=== PATIENT | female | born 1960 | race Hispanic/Latino ===

== ENCOUNTER 2021-06-02 12:58 | Inpatient (IN) | payer MEDICARE ==
[2021-06-03 05:37] LABS: Basophils # (Auto) 0.1 K/mm3 (0.0-0.1); Basophils % (Auto) 1.1 % (0.0-1.8); Eosinophils # (Auto) 0.1 K/mm3 (0.0-0.4); Eosinophils % (Auto) 0.9 % (0.0-4.3); Hematocrit 38.3 % (30.3-42.9); Hemoglobin 12.7 gm/dl (10.1-14.3); Lymphocytes # (Auto) 1.8 K/mm3 (1.2-5.4); Lymphocytes % (Auto) 23.7 % (13.4-35.0); Mean Corpuscular HGB Conc 33 % (30-34); Mean Corpuscular Volume 87 fl (79-97); Monocytes # (Auto) 0.7 K/mm3 (0.0-0.8); Monocytes % (Auto) 9.4 % (0.0-7.3); Platelet Count 331 K/mm3 (140-440); Red Cell Distribution Width 15.3 % (13.2-15.2)
[2021-06-03 06:04] LABS: Alanine Aminotransferase 12 units/L (7-56); Albumin 3.2 g/dL (3.9-5); BUN/Creatinine Ratio 14; Blood Urea Nitrogen 13 mg/dL (7-17); Calcium 9.5 mg/dL (8.4-10.2); Chol/HDL Ratio 4.19 %; HDL Cholesterol 42 mg/dL (40-59); Hemolysis Index 17; LDL Cholesterol,Direct 105 mg/dL (50-130)
[2021-06-03 06:48] LABS: Hepatitis C Virus Antibody Non-Reactive (NonReactive)
[2021-06-03 06:59] LABS: Hepatitis B Surface Antigen Nonreactive (Negative)
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
[2021-06-03] MEDS ORDERED: NON-FORMULARY EACH (Aspirin [Vazalore] 81 MG Capsule) PO SCH (10:00)
[2021-06-03] MEDS ORDERED: ALPRAZolam 0.5 MG TAB PO PRN (10:00)
[2021-06-03] MEDS: PANTOPRAZOLE 20 MG TAB PO SCH (11:06)
[2021-06-03] MEDS: buPROPion SR 150 MG TAB PO SCH (11:06)
[2021-06-03] MEDS: FLUoxetine 10 MG TAB PO SCH (11:06)
[2021-06-03] MEDS: METOPROLOL TARTRATE 25 MG TAB PO SCH ×2 (11:07→21:13)
[2021-06-03] MEDS: ASPIRIN 81 MG TAB CHEW PO SCH (11:42)
[2021-06-03] MEDS ORDERED: ONDANSETRON 4 MG ODT TAB PO PRN (17:00)
--- NOTE | 2021-06-03 17:01 | Consultation ---
History of Present Illness - Reason for Consult Consult date: 06/03/21 Medical management - History of Present Illness The patient is 61-year-old female with past medical history of depression, anxiety, PTSD, stroke, prior GI bleed, pancreatitis, ASD and breast cancer (diagnosed 1995; status post transflap reconstruction and chemoradiation) who presents with suicidal ideation (more specifically overdosing on Seroquel). The patient describes having increased social stressors "piling on top of each other" causing her to "snap". The patient currently endorses feeling fine and being ready for discharge. She describes her episode as "an impulse". The patient describes being compliant with her medications and having no issues with said medications. The consult was placed for medical management of nonpsychiatric diagnoses. Past History Past Medical History: atrial fib, cancer (Breast cancer diagnosed in 1995), stroke, other (GI bleed, pancreatitis, ASD) Past Surgical History: total knee replacement (Left knee), Other (Transflap reconstruction of breast) Family history: cancer (Breast cancer in mother. Surgical hypothyroidism in mother.) Medications and Allergies Allergies Allergy/AdvReac Type Severity Reaction Status Date / Time No Known Allergies Allergy Unverified 06/02/21 14:42 Home Medications Medication Instructions Recorded Confirmed Last Taken Type ALPRAZolam [Xanax TAB] 0.5 mg PO BID PRN 06/03/21 06/03/21 Unknown History Aspirin [Vazalore] 81 mg PO DAILY 06/03/21 06/03/21 Unknown History Enoxaparin Sodium [Lovenox] 40 mg SQ DAILY 06/03/21 06/03/21 Unknown History FLUoxetine [PROzac] 10 mg PO DAILY 06/03/21 06/03/21 Unknown History Metoprolol [Lopressor TAB] 25 mg PO BID 06/03/21 06/03/21 Unknown History Pantoprazole [Protonix TAB] 40 mg PO QDAY 06/03/21 06/03/21 Unknown History QUEtiapine [SEROquel] 25 mg PO HS 06/03/21 06/03/21 Unknown History Zolpidem Tartrate [Zolpidem 6.25 mg PO HS 06/03/21 06/03/21 Unknown History Tartrate ER] buPROPion SR [Wellbutrin Sr] 150 mg PO QAM 06/03/21 06/03/21 Unknown History Active Meds: Active Medications Alprazolam (Alprazolam 0.5 Mg Tab) 0.5 mg PO BID PRN PRN Reason: Anxiety Aspirin (Aspirin 81 Mg Tab Chew) 81 mg PO QDAY [facility] Last Admin: 06/03/21 11:42 Dose: 81 mg Documented by: Bupropion HCl (Bupropion Sr 150 Mg Tab) 150 mg PO QAM [facility] Last Admin: 06/03/21 11:06 Dose: 150 mg Documented by: Fluoxetine HCl (Fluoxetine 10 Mg Tab) 10 mg PO DAILY [facility] Last Admin: 06/03/21 11:06 Dose: 10 mg Documented by: Metoprolol Tartrate (Metoprolol Tartrate 25 Mg Tab) 25 mg PO BID [facility] Last Admin: 06/03/21 11:07 Dose: 25 mg Documented by: Ondansetron HCl (Ondansetron 4 Mg Odt Tab) 4 mg PO Q8H PRN PRN Reason: Nausea And Vomiting Pantoprazole Sodium (Pantoprazole 20 Mg Tab) 40 mg PO 0730 [facility] Last Admin: 06/03/21 11:06 Dose: 40 mg Documented by: Zolpidem Tartrate (Zolpidem 5 Mg Tab) 5 mg PO QHS [facility] Review of Systems All systems: negative Exam - Constitutional Vitals: Temp Pulse Resp BP Pulse Ox 98.8 F 85 18 106/73 97 06/03/21 09:37 06/03/21 11:07 06/03/21 09:37 06/03/21 11:07 06/03/21 09:37 General appearance: Present: no acute distress - EENT Eyes: Present: PERRL, EOM intact ENT: hearing intact, clear oral mucosa, dentition normal - Neck Neck: Present: supple, normal ROM - Respiratory Respiratory effort: normal - Cardiovascular Rhythm: irregularly irregular Heart Sounds: Present: S1 & S2 - Extremities Extremities: no ischemia, pulses intact, pulses symmetrical, No edema, normal temperature, normal color Peripheral Pulses: within normal limits - Abdominal General gastrointestinal: Present: soft, non-tender, non-distended, normal bowel sounds Female genitourinary: Present: deferred - Rectal Rectal Exam: deferred - Integumentary Integumentary: Present: clear, warm, dry - Musculoskeletal Musculoskeletal: strength equal bilaterally - Psychiatric Psychiatric: appropriate mood/affect, intact judgment & insight, memory intact, cooperative - Neurologic Neurologic: CNII-XII intact, moves all extremities - Allied Health Allied health notes reviewed: nursing Results - Labs CBC & Chem 7: 06/03/21 05:16 06/03/21 05:16 Labs: Abnormal lab results 06/03/21 06/03/21 06/03/21 Range/Units 05:16 05:16 05:16 RDW 15.3 H (13.2-15.2) % [place] % (Auto) 9.4 H (0.0-7.3) % Albumin 3.2 L (3.9-5) g/dL TSH 4.260 H (0.270-4.200) mlU/mL Assessment and Plan #Suicidal ideation #Depression #Anxiety #PTSD -Management per primary #Atrial fibrillation -Currently rate controlled with metoprolol tartrate 25 mg twice daily -Continue home medication #Elevated TSH -TSH 4.260 -Patient denies any symptoms associated with hypothyroidism -Ordering free T4 in a.m. #GERD -Continue home p.o. pantoprazole 40 mg daily #History of stroke -No residual defects notable on physical exam -Continue daily ASA 81 mg Thank you for this interesting consult. We will continue to follow.
[2021-06-03] MEDS: ZOLPIDEM 5 MG TAB PO SCH (21:14)
[2021-06-03] MEDS ORDERED: ZOLPIDEM TARTRATE 6.25 MG PO SCH (22:00)
--- NOTE | 2021-06-04 09:19 | Progress Note ---
Subjective Date of service: 06/04/21 Subjective Comment: 06/04/2021: The patient reports doing well. She states depression is improving. She reports sleep and appetite as good. She denies any current suicidal ideation and denies hallucinations. REVIEW OF SYSTEMS Constitutional: Negative for weight loss ENT: Negative for stridor Respiratory: Negative for cough or hemoptysis All other systems reviewed and are negative MENTAL STATUS EXAMINATION General Appearance and Behavior: Age appropriate, good hygiene, wearing appropriate clothes, fair eye contact Cooperation: Participating/engaged, but Guarded Psychomotor Behavior: Psychomotor normal Mood: "good" Affect and affective range: Congruent to stated mood Thought Process: Goal directed Thought Content: Not suicidal Speech: normal tone and pace Suicidal Ideation:Denies Homicidal Ideation: Denies Hallucinations: Denies Impulse Control: Questionable Insight and Judgment: Limited insight and fair judgment Memory: Normal Attention: Normal Orientation: Alert and oriented Assessment and Plan (1) Major depressive disorder, recurrent, severe-F33.2 Current Visit: Yes Status: Acute Treatment Plan Patient admitted for inpatient psychiatric evaluation, medication adjustment and close monitoring The patient's behavior, mood, sleep and appetite will be closely monitored. Patient enrolled in individual and group therapeutic sessions and encouraged to attend. Patient provided with a safe and structured environment. Patient's physical health needs will be addressed by the Hospitalist. Hospitalist Consulted Labs including CBC, CMP, Lipid profile and Hemoglobin A1C levels ordered for baseline reference Social Assessment will be completed and the Assistant Branch Manager will work with patient and family to ensure a suitable and safe disposition Medication adjustment will be made as clinically indicated Continued Home medications No changes made today Usual Wellness Pentecostal/Preservation: - Start Trazodone 50 mg po QHS & 50 mg po QHS PRN between 10 PM & 2 AM for insomnia - Start Melatonin 5 mg po QHS to promote circadian rhythm The patient agreed on the treatment plan, understood the risk, benefit, alternative treatment, potential consequence of no treatment, and gave informed consent. Estimated days: 6 Post hospital care: primary care provider, psychiatric provider Case staffed with Dr. Whaley Reaction to Hospitalization: Accepting Medications and Allergies Medications and Allergies Allergies Allergy/AdvReac Type Severity Reaction Status Date / Time No Known Allergies Allergy Unverified 06/02/21 14:42 Home Medications Medication Instructions Recorded Confirmed Last Taken Type ALPRAZolam [Xanax TAB] 0.5 mg PO BID PRN 06/03/21 06/03/21 Unknown History Aspirin [Vazalore] 81 mg PO DAILY 06/03/21 06/03/21 Unknown History Enoxaparin Sodium [Lovenox] 40 mg SQ DAILY 06/03/21 06/03/21 Unknown History FLUoxetine [PROzac] 10 mg PO DAILY 06/03/21 06/03/21 Unknown History Metoprolol [Lopressor TAB] 25 mg PO BID 06/03/21 06/03/21 Unknown History Pantoprazole [Protonix TAB] 40 mg PO QDAY 06/03/21 06/03/21 Unknown History QUEtiapine [SEROquel] 25 mg PO HS 06/03/21 06/03/21 Unknown History Zolpidem Tartrate [Zolpidem 6.25 mg PO HS 06/03/21 06/03/21 Unknown History Tartrate ER] buPROPion SR [Wellbutrin Sr] 150 mg PO QAM 06/03/21 06/03/21 Unknown History Active Meds: Active Medications Alprazolam (Alprazolam 0.5 Mg Tab) 0.5 mg PO BID PRN PRN Reason: Anxiety Aspirin (Aspirin 81 Mg Tab Chew) 81 mg PO QDAY [facility] Last Admin: 06/03/21 11:42 Dose: 81 mg Documented by: Bupropion HCl (Bupropion Sr 150 Mg Tab) 150 mg PO QAM [facility] Last Admin: 06/03/21 11:06 Dose: 150 mg Documented by: Fluoxetine HCl (Fluoxetine 10 Mg Tab) 10 mg PO DAILY [facility] Last Admin: 06/03/21 11:06 Dose: 10 mg Documented by: Metoprolol Tartrate (Metoprolol Tartrate 25 Mg Tab) 25 mg PO BID [facility] Last Admin: 06/03/21 21:13 Dose: 25 mg Documented by: Ondansetron HCl (Ondansetron 4 Mg Odt Tab) 4 mg PO Q8H PRN PRN Reason: Nausea And Vomiting Last Admin: 06/03/21 17:41 Dose: 4 mg Documented by: Pantoprazole Sodium (Pantoprazole 20 Mg Tab) 40 mg PO 0730 [facility] Last Admin: 06/03/21 11:06 Dose: 40 mg Documented by: Zolpidem Tartrate (Zolpidem 5 Mg Tab) 5 mg PO QHS [facility] Last Admin: 06/03/21 21:14 Dose: 5 mg Documented by: Results - Results Labs/Vitals: Laboratory Last Values WBC 7.6 K/mm3 (4.5-11.0) 06/03/21 05:16 RBC 4.40 M/mm3 (3.65-5.03) 06/03/21 05:16 Hgb 12.7 gm/dl (10.1-14.3) 06/03/21 05:16 Hct 38.3 % (30.3-42.9) 06/03/21 05:16 MCV 87 fl (79-97) 06/03/21 05:16 MCH 29 pg (28-32) 06/03/21 05:16 MCHC 33 % (30-34) 06/03/21 05:16 RDW 15.3 % (13.2-15.2) H 06/03/21 05:16 Plt Count 331 K/mm3 (140-440) 06/03/21 05:16 Lymph % (Auto) 23.7 % (13.4-35.0) 06/03/21 05:16 [place] % (Auto) 9.4 % (0.0-7.3) H 06/03/21 05:16 Eos % (Auto) 0.9 % (0.0-4.3) 06/03/21 05:16 Baso % (Auto) 1.1 % (0.0-1.8) 06/03/21 05:16 Lymph # (Auto) 1.8 K/mm3 (1.2-5.4) 06/03/21 05:16 [place] # (Auto) 0.7 K/mm3 (0.0-0.8) 06/03/21 05:16 Eos # (Auto) 0.1 K/mm3 (0.0-0.4) 06/03/21 05:16 Baso # (Auto) 0.1 K/mm3 (0.0-0.1) 06/03/21 05:16 Seg Neutrophils % 64.9 % (40.0-70.0) 06/03/21 05:16 Seg Neutrophils # 5.0 K/mm3 (1.8-7.7) 06/03/21 05:16 Sodium 142 mmol/L (137-145) 06/03/21 05:16 Potassium 4.0 mmol/L (3.6-5.0) 06/03/21 05:16 Chloride 103.8 mmol/L (98-107) 06/03/21 05:16 Carbon Dioxide 25 mmol/L (22-30) 06/03/21 05:16 Anion Gap 17 mmol/L 06/03/21 05:16 BUN 13 mg/dL (7-17) 06/03/21 05:16 Creatinine 0.9 mg/dL (0.6-1.2) 06/03/21 05:16 Estimated GFR > 60 ml/min 06/03/21 05:16 BUN/Creatinine Ratio 14 % 06/03/21 05:16 Glucose 98 mg/dL (65-100) 06/03/21 05:16 POC Glucose 93 mg/dL (70-105) 06/03/21 06:10 Calcium 9.5 mg/dL (8.4-10.2) 06/03/21 05:16 Total Bilirubin 0.40 mg/dL (0.1-1.2) 06/03/21 05:16 AST 16 units/L (5-40) 06/03/21 05:16 ALT 12 units/L (7-56) 06/03/21 05:16 Alkaline Phosphatase 97 units/L (35-129) 06/03/21 05:16 Total Protein 6.3 g/dL (6.3-8.2) 06/03/21 05:16 Albumin 3.2 g/dL (3.9-5) L 06/03/21 05:16 Albumin/Globulin Ratio 1.0 % 06/03/21 05:16 Triglycerides 121 mg/dL (2-149) 06/03/21 05:16 Cholesterol 176 mg/dL (50-199) 06/03/21 05:16 LDL Cholesterol Direct 105 mg/dL (50-130) 06/03/21 05:16 HDL Cholesterol 42 mg/dL (40-59) 06/03/21 05:16 Cholesterol/HDL Ratio 4.19 % 06/03/21 05:16 TSH 4.260 mlU/mL (0.270-4.200) H 06/03/21 05:16 Hepatitis A IgM Ab Non-reactive (NonReactive) 06/03/21 05:16 Hep Bs Antigen Nonreactive (Negative) 06/03/21 05:16 Hep B Core IgM Ab Non-reactive (NonReactive) 06/03/21 05:16 Hepatitis C Antibody Non-reactive (NonReactive) 06/03/21 05:16 Last Vital Signs Temp 99.3 F 06/03/21 19:44 Pulse 72 06/03/21 21:13 Resp 16 06/03/21 19:44 BP 121/80 06/03/21 21:13 Pulse Ox 96 06/03/21 19:44
[2021-06-04] MEDS: FLUoxetine 10 MG TAB PO SCH (10:03)
[2021-06-04] MEDS: PANTOPRAZOLE 20 MG TAB PO SCH (10:03)
[2021-06-04] MEDS: buPROPion SR 150 MG TAB PO SCH (10:04)
[2021-06-04] MEDS: METOPROLOL TARTRATE 25 MG TAB PO SCH ×2 (10:04→21:54)
[2021-06-04] MEDS: ASPIRIN 81 MG TAB CHEW PO SCH (10:04)
[2021-06-04] MEDS: ZOLPIDEM 5 MG TAB PO SCH (21:55)
[2021-06-05] MEDS: PANTOPRAZOLE 20 MG TAB PO SCH (07:51)
[2021-06-05 08:36] VITALS: BP 123/85
[2021-06-05] MEDS: METOPROLOL TARTRATE 25 MG TAB PO SCH (09:27)
[2021-06-05] MEDS: FLUoxetine 10 MG TAB PO SCH (09:28)
[2021-06-05] MEDS: ASPIRIN 81 MG TAB CHEW PO SCH (09:28)
[2021-06-05] MEDS: buPROPion SR 150 MG TAB PO SCH (09:28)
--- NOTE | 2021-06-05 10:22 | Discharge Summary ---
Providers - Providers Date of Admission: 06/02/21 23:32 Date of discharge: 06/05/21 Attending physician: ANA MARIA GRANT MD 06/02/21 14:30 Consult to Physician [CONS] Routine Comment: Consulting Provider: SERA NGUYEN Physician Instructions: Reason For Exam: mange existing medical conditions 06/03/21 07:57 Consult to Wound/ET Nurse [CONS] Routine Reason For Exam: wound eval for Right forearm Primary care physician: [employer] [facility] Hospitalization Reason for admission: suicidal attempt Admitting Diagnosis: F33.2 - MAJOR DEPRESSV DISORDER, RECURRENT SEVERE W/O PSYCH FEATURES Hospital course: The patient was provided inpatient psychiatric treatment with safe and supportive care, medication adjustment, adverse effect monitoring, medical evaluations, medical treatments, assessment and psycho-education. The patient's mood, cognition, behavior, moral support are improved and stabilized. St the time of discharge, the patient had no endangering behavior and no debilitating adverse effects. The patient agreed on potential consequences of no treatment and gave informed consent. 06/05 The patient was seen today. She denies SI/HI and states "that was a big mistake." She says "I'm not suicidal anymore. That won't happen again." She denies hallucinations of any kind. 06/04/2021: The patient reports doing well. She states depression is improving. She reports sleep and appetite as good. She denies any current suicidal ideation and denies hallucinations. Disposition: 01 HOME / SELF CARE / HOMELESS Time spent for discharge: 35 Allergies/Adverse Reactions: Allergies No Known Allergies Allergy (Unverified 06/02/21 14:42) Vital Signs: Last Vital Signs Temp 99.0 F 06/05/21 08:10 Pulse 73 06/05/21 09:27 Resp 18 06/05/21 08:10 BP 123/85 06/05/21 09:27 Pulse Ox 94 06/05/21 08:10 Last Lab: Laboratory Last Values WBC 7.6 K/mm3 (4.5-11.0) 06/03/21 05:16 RBC 4.40 M/mm3 (3.65-5.03) 06/03/21 05:16 Hgb 12.7 gm/dl (10.1-14.3) 06/03/21 05:16 Hct 38.3 % (30.3-42.9) 06/03/21 05:16 MCV 87 fl (79-97) 06/03/21 05:16 MCH 29 pg (28-32) 06/03/21 05:16 MCHC 33 % (30-34) 06/03/21 05:16 RDW 15.3 % (13.2-15.2) H 06/03/21 05:16 Plt Count 331 K/mm3 (140-440) 06/03/21 05:16 Lymph % (Auto) 23.7 % (13.4-35.0) 06/03/21 05:16 [place] % (Auto) 9.4 % (0.0-7.3) H 06/03/21 05:16 Eos % (Auto) 0.9 % (0.0-4.3) 06/03/21 05:16 Baso % (Auto) 1.1 % (0.0-1.8) 06/03/21 05:16 Lymph # (Auto) 1.8 K/mm3 (1.2-5.4) 06/03/21 05:16 [place] # (Auto) 0.7 K/mm3 (0.0-0.8) 06/03/21 05:16 Eos # (Auto) 0.1 K/mm3 (0.0-0.4) 06/03/21 05:16 Baso # (Auto) 0.1 K/mm3 (0.0-0.1) 06/03/21 05:16 Seg Neutrophils % 64.9 % (40.0-70.0) 06/03/21 05:16 Seg Neutrophils # 5.0 K/mm3 (1.8-7.7) 06/03/21 05:16 Sodium 142 mmol/L (137-145) 06/03/21 05:16 Potassium 4.0 mmol/L (3.6-5.0) 06/03/21 05:16 Chloride 103.8 mmol/L (98-107) 06/03/21 05:16 Carbon Dioxide 25 mmol/L (22-30) 06/03/21 05:16 Anion Gap 17 mmol/L 06/03/21 05:16 BUN 13 mg/dL (7-17) 06/03/21 05:16 Creatinine 0.9 mg/dL (0.6-1.2) 06/03/21 05:16 Estimated GFR > 60 ml/min 06/03/21 05:16 BUN/Creatinine Ratio 14 % 06/03/21 05:16 Glucose 98 mg/dL (65-100) 06/03/21 05:16 POC Glucose 93 mg/dL (70-105) 06/03/21 06:10 Calcium 9.5 mg/dL (8.4-10.2) 06/03/21 05:16 Total Bilirubin 0.40 mg/dL (0.1-1.2) 06/03/21 05:16 AST 16 units/L (5-40) 06/03/21 05:16 ALT 12 units/L (7-56) 06/03/21 05:16 Alkaline Phosphatase 97 units/L (35-129) 06/03/21 05:16 Total Protein 6.3 g/dL (6.3-8.2) 06/03/21 05:16 Albumin 3.2 g/dL (3.9-5) L 06/03/21 05:16 Albumin/Globulin Ratio 1.0 % 06/03/21 05:16 Triglycerides 121 mg/dL (2-149) 06/03/21 05:16 Cholesterol 176 mg/dL (50-199) 06/03/21 05:16 LDL Cholesterol Direct 105 mg/dL (50-130) 06/03/21 05:16 HDL Cholesterol 42 mg/dL (40-59) 06/03/21 05:16 Cholesterol/HDL Ratio 4.19 % 06/03/21 05:16 TSH 4.260 mlU/mL (0.270-4.200) H 06/03/21 05:16 Free T4 1.47 ng/dL (0.76-1.46) H 06/04/21 13:52 Hepatitis A IgM Ab Non-reactive (NonReactive) 06/03/21 05:16 Hep Bs Antigen Nonreactive (Negative) 06/03/21 05:16 Hep B Core IgM Ab Non-reactive (NonReactive) 06/03/21 05:16 Hepatitis C Antibody Non-reactive (NonReactive) 06/03/21 05:16 Core Measure Documentation - Palliative Care Palliative Care/ Comfort Measures: Not Applicable - Core Measures Any of the following diagnoses?: none Exam - Constitutional Vitals: Temp Pulse Resp BP Pulse Ox 99.0 F 73 18 123/85 94 06/05/21 08:10 06/05/21 09:27 06/05/21 08:10 06/05/21 09:27 06/05/21 08:10 General appearance: Present: no acute distress - EENT Eyes: Present: PERRL, EOM intact ENT: hearing intact, clear oral mucosa - Neck Neck: Present: supple, normal ROM - Respiratory Respiratory effort: normal Plan Activity: advance as tolerated Weight Bearing Status: Weight Bear as Tolerated Care Plan Goals: maintain good and stable mental health Plan of Treatment: The patient should be compliant with medications, not to use drugs, and not to drink alcohol. The patient understands that if suicidal ideas, homicidal ideas or any endangering feeling arise, the patient should seek assistance including, but not limited to crisis hotline, and emergency room. Assessment: Major Depressive Disorder Follow up with: PRIMARY CARE, [Primary Care Provider] - 7 Days Prescriptions: FLUoxetine [PROzac] 10 mg PO DAILY #30 buPROPion SR [Wellbutrin SR] 150 mg PO QAM #30
== END 2021-06-05 19:40 | disposition home or self-care (01) | DRG 885 ==
LOC: 3A 12:58 → UNDOADMIN 12:58 → 5A 23:32
PROVIDERS: ADMIT Psychiatry & Neurology Psychiatry; ATTEND Psychiatry & Neurology Psychiatry
DX: F33.2 Major depressive disorder, recurrent severe without psychotic features (principal); F41.9 Anxiety disorder, unspecified; Z86.73 Personal history of transient ischemic attack (TIA), and cerebral infarction without residual deficits; Z85.3 Personal history of malignant neoplasm of breast; Z96.652 Presence of left artificial knee joint; Z79.82 Long term (current) use of aspirin; K21.9 Gastro-esophageal reflux disease without esophagitis; F43.10 Post-traumatic stress disorder, unspecified; I48.91 Unspecified atrial fibrillation
CPT/HCPCS: 36415; 80053; 80061; 80074; 82962; 84439; 84443; 85025; G0378; Q0162